=== PATIENT | female | born 1935 | race Caucasian/White ===

== ENCOUNTER 2019-07-16 08:19 | Outpatient (CLI) | payer MEDICARE ==
--- NOTE | 2019-07-16 09:56 | CT ---
PRE- AND POSTCONTRAST SOFT TISSUE NECK CT: HISTORY: Elevated calcium levels. Evaluate parathyroid/thyroid. COMPARISON: None. TECHNIQUE: Pre- and postcontrast soft tissue neck CT is performed in the axial plane. Reformatted images are sub mitted. FINDINGS: Visualized brain parenchyma is unremarkable. Mucous retention cyst in the right maxillary sinus is kelley spected. Aerodigestive tract appears to be patent. No obvious masses in the oral cavity. Limited evaluation by the presence of dental amalgam artifact. Midline fatty raphae of the tongue is preserved. Epiglottis has a normal caliber. Preepiglottic fat is preserved. There is no prevertebral soft tissue swelling. Appropriate attenuation of the paraspinal muscles. Appropriate attenuation of the salivary glands. No evidence of lymphadenopathy by size criteria. Upper mediastinum and lung apices are unremarkable. There is extensive atherosclerosis throughout the great vessels of the neck. Based on the images prov ided, no evidence of high-grade stenosis. Cervical spine vertebral body height is maintained. There is no fracture. On the noncontrast series, there are no abnormal hypodensities in the thyroid bed. On the 25 second d elay and 65 second delay images, there is an intrinsically hypodense focus with evidence of enhancement just to the right of the esophagus, at the level of the thoracic inlet (axial image #47 o n all of the 3 series). This focus measures 0.7 cm anterior-posterior by 0.6 cm mediolateral. Note, the inferior pole of the left thyroid lobe extends into the anterior mediastinum and is noted to term inate just left of the esophagus (axial image #42 on all series). IMPRESSION: 1. 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 2. 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 3. Further evaluation with nuclear medicine imaging scan if clinically warranted. ADDENDUM: Correlation is made with nuclear medicine scan performed on 07/16/2019, after the CT scan. B ased on that exam, the finding in the right neck, adjacent to the esophagus is not a parathyroid adenoma. The substernal left thyroid lobe does have a focus of increased tracer localization suggesti ng a probable adenoma at the inferior aspect of the left thyroid lobe. Retrospectively, this adenoma measures 0.4 x 0.9 cm.
[2019-07-16] MEDS ORDERED: Iopamidol 370 76% 50 ML VIAL FS ONE (11:01)
[2019-07-16] MEDS ORDERED: Iopamidol 370 76% 100 ML VIAL ONE (11:01)
--- NOTE | 2019-07-16 14:16 | NM ---
NUCLEAR MEDICINE PARATHYROID SCAN WITH SPECT IMAGING: HISTORY: Primary hyperparathyroidism. COMPARISON: None. TECHNIQUE: Patient was administered 25.7 mCi of technetium 99m sestamibi intravenously. After appropriate delay, planar and SPECT imaging is performed. FINDINGS: There is expected distribution of the radiotracer. On the delayed images and SPECT images, there is n o evidence of significant radiotracer localization in the right neck, adjacent to the esophagus corresponding to the finding on the recent CT. However, there does appear to be marked to radiotracer localization involving the left aspect of the neck which was initially commented upon as being a retrosternal left thyroid lobe. The tip of the left thyroid lobe may in fact have an adenoma associat ed with it which corresponds to the increased uptake. IMPRESSION: Probable parathyroid adenoma along the inferior aspect of the left thyroid lobe which is a retrostern al in location and is noted in the upper anterior mediastinum.
== END 2019-07-16 08:20 | disposition home or self-care (01) ==
LOC: CT 08:19
PROVIDERS: ATTEND Otolaryngology Plastic Surgery within the Head & Neck
DX: D49.0 Neoplasm of unspecified behavior of digestive system (principal); E21.0 Primary hyperparathyroidism
CPT/HCPCS: 70492; 78072; 82565; A9500; Q9967